=== PATIENT | male | born 1995 | race Caucasian/White ===

== ENCOUNTER 2020-11-13 11:58 | Emergency (ER) | payer SELFPAY ==
[2020-11-13 12:07] VITALS: BP 113/64; PULSE 58; RESP 16; TEMP 36.4; O2SAT 96
--- NOTE | 2020-11-13 12:18 | ECG_ITS ---
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 Measurements Intervals [place] Rate: 42 P: 43 NC: 157 QRS: 76 QRSD: 106 T: 47 QT: 445 QTc: 373 Interpretive Statements SINUS BRADYCARDIA WITH SINUS ARRHYTHMIA INCOMPLETE RIGHT BUNDLE BRANCH BLOCK [90+ ms QRS DURATION, TERMINAL R IN V1/V2, 40+ ms S IN I/aVL/V4/V5/V6] No previous ECG available for comparison Electronically Signed On 11-14-2020 10:08:30 CDT by Ryan Chacon M.D. [id number]
--- NOTE | 2020-11-13 12:18 | XR_ITS ---
WS: [id number] Portable AP upright chest, 11/13/2020 Clinical Data: chest pain Comparison: None. Findings: No nodules, masses or effusions are seen. The heart is normal. The pulmonary vascularity is not increased. No pneumonia or pneumothorax is seen. There is a healed left mid clavicular fracture. There are monitor leads on the chest wall. XR/XR chest 1V portable [id number] Impression: Negative chest.
[2020-11-13 12:40] LABS: Basophils % 0.5 %; Eosinophils # 0.1 10^3/uL (0.0-0.8); Eosinophils % 1.4 %; Hematocrit 40.8 % (42.0-52.0); Hemoglobin 13.9 g/dL (11.7-16.6); Lymphocytes # 3.4 10^3/uL (0.8-4.8); Lymphocytes % 54.1 %; Mean Corpuscular HGB Conc 34.1 g/dL (30.0-36.0); Mean Corpuscular Hemoglobin 28.4 pg (28.0-34.0); Mean Corpuscular Volume 83.3 fL (80-94); Mean Platelet Volume 10.5 fL (7.4-10.4); Monocytes # 0.5 10^3/uL (0.2-0.9); Monocytes % 7.7 %; Neutrophils # 2.25 10^3/uL (1.8-7.7); Nucleated Red Blood Cells % 0 %; Platelet Count 250 10^3/cmm (130-400); Red Cell Distribution Width 12.6 % (12.1-15.1); White Blood Count 6.3 10^3/uL (4.0-10.0)
[2020-11-13 12:56] LABS: Alanine Aminotransferase 24 U/L (0-41); Albumin Level 4.5 g/dL (3.5-5.2); Alkaline Phosphatase 104 IU/L (40-130); Anion Gap 14.2 (5-19); Aspartate Amino Transferase 29 U/L (0-40); Blood Urea Nitrogen 15 mg/dL (6-20); Carbon Dioxide 26 mmol/L (22-29); Chloride 102 mmol/L (98-107); Globulin 2.9 g/dL (1.3-4.6); Glomerular Filtration Rate 119.8 mL/min (90-130); Glucose 78 mg/dL (65-115); Osmolality Calculated 286 mOsm/kg (285-295); Potassium 4.2 mmol/L (3.5-5.1); Sodium 138 mmol/L (136-145); Total Bilirubin 0.8 mg/dL (0.15-1.2); Total Protein 7.4 g/dL (6.6-8.7)
[2020-11-13 12:57] LABS: Troponin(5th) Baseline 7 ng/L (0-15)
--- NOTE | 2020-11-13 12:57 | W.ED.CHESTPA ---
HPI - Chest Pain General: Chief Complaint: Chest Pain Stated Complaint: CHEST PAIN/ BRADYCARDIA Time Seen by Provider: 11/13/20 12:13 History of Present Illness: HPI narrative: Patient presents with right chest wall pain. Patient was worked on some physical activity when he developed the pain. Gets worse with deep breath. He does admit to vaping. He reports his dad has a problem with bradycardia and developing chest pain when he has bradycardia. Patient admits that he has had some issues with bradycardia in the past. He denies any nausea, vomiting, fever, chills, cough. The pain is reproducible with palpation. He is not having any pain at this time Associated symptoms: Deny abdominal pain, dyspnea, fever(s), nausea, palpitations or vomiting Review of Systems Const: Denies: fever(s) or chills Eyes: Denies: change in vision ENMT: Denies: throat pain Card: Reports: chest pain and other (Please see HPI); Denies: palpitations Resp: Denies: dyspnea or productive cough GI: Denies: abdominal pain, nausea or vomiting : Denies: flank pain or difficulty urinating Musc: Denies: neck pain or back pain Skin/Breast: Denies: rash Neuro: Denies: headache(s) Physical Exam Const: COMMON NORMALS: no acute distress, average body habitus and patient oriented x3 HENMT: COMMON NORMALS: normocephalic and atraumatic HEAD & SCALP: normocephalic and atraumatic Neck/C-Spine: COMMON NORMALS: full ROM and supple Chest: CHEST: Yes tenderness Resp: COMMON NORMALS: normal respiratory effort and No retractions Cardio: COMMON NORMALS: regular rate and regular rhythm RATE: regular rate RHYTHM: regular rhythm GI: COMMON NORMALS: Soft to palpation and non-tender PALPATION: Yes Soft to palpation Extremity: COMMON NORMALS: normal to inspection and full ROM Neuro: COMMON NORMALS: patient oriented x3 and CN's II-XII intact bilaterally Psych: COMMON NORMALS: mental status grossly normal and speech normal ATTITUDE: Yes calm SPEECH: Yes normal speech Skin: COMMON NORMALS: no rashes or lesions noted GENERAL SKIN EXAM: no rashes or lesions noted Course Vital Signs: Vital signs: Vital Signs Temperature 97.5 F L 11/13/20 12:07 Pulse Rate 58 L 11/13/20 12:07 Respiratory Rate 16 11/13/20 12:07 Blood Pressure 113/64 11/13/20 12:07 Pulse Oximetry 96 11/13/20 12:07 MDM - Chest Pain MDM Narrative: Medical decision making narrative: Patient with negative evaluation. Patient's physical exam is consistent with chest wall strain versus pleurisy. Discussed with patient does not seem cardiac in nature. Patient stable, discharged home. He should follow-up with his primary care provider for further outpatient evaluation Lab Data: Attestation: I reviewed the patient's lab results. Labs: Lab Results 11/13/20 11/13/20 11/13/20 Range/Units 11:40 11:40 11:40 WBC 6.3 (4.0-10.0) 10^3/ uL RBC 4.90 (4.1-5.3) 10^6/u L Hgb 13.9 (11.7-16.6) g/dL Hct 40.8 L (42.0-52.0) % MCV 83.3 (80-94) fL MCH 28.4 (28.0-34.0) pg MCHC 34.1 (30.0-36.0) g/dL RDW 12.6 (12.1-15.1) % Plt Count 250 (130-400) 10^3/c mm MPV 10.5 H (7.4-10.4) fL Neut % (Auto) 36.0 % Lymph % (Auto) 54.1 % [place] % (Auto) 7.7 % Eos % (Auto) 1.4 % Baso % (Auto) 0.5 % Neut # (Auto) 2.25 (1.8-7.7) 10^3/u L Lymph # (Auto) 3.4 (0.8-4.8) 10^3/u L [place] # (Auto) 0.5 (0.2-0.9) 10^3/u L Eos # (Auto) 0.1 (0.0-0.8) 10^3/u L Baso # (Auto) 0.0 (0.0-0.1) 10^3/u L Nucleated RBC % (a uto) 0 % Nucleated RBCs # 0.0 /100WBC Sodium 138 (136-145) mmol/L Potassium 4.2 (3.5-5.1) mmol/L Chloride 102 (98-107) mmol/L Carbon Dioxide 26 (22-29) mmol/L Anion Gap 14.2 (5-19) BUN 15 (6-20) mg/dL Creatinine 0.8 (0.7-1.2) mg/dL GFR Calculation 119.8 (90-130) mL/min Glucose 78 (65-115) mg/dL Calculated Osmolal ity 286 (285-295) mOsm/k g Calcium 9.0 (8.5-10.5) mg/dL Total Bilirubin 0.8 (0.15-1.2) mg/dL AST 29 (0-40) U/L ALT 24 (0-41) U/L Alkaline Phosphata se 104 (40-130) IU/L Troponin T Baselin e 7 (0-15) ng/L Total Protein 7.4 (6.6-8.7) g/dL Albumin 4.5 (3.5-5.2) g/dL Globulin 2.9 (1.3-4.6) g/dL Imaging Data^: CXR: Attestation: I personally reviewed and interpreted this imaging study as follows: My impression: no acute process Radiologist's impression: neg chest EKG Data^: EKG 1: EKG interpretation date: 11/13/20 EKG interpretation time: 12:39 Interpretation: hr 42, incomplete RBBB, Pr 157, no st changes Discharge Plan Discharge Patient Disposition: Home Clinical Impression: Anterior chest wall pain Condition: Stable Prescriptions: No Action No Known Home Medications RF: 0 Discharge Orders: Discharge ED (Routine); Ordered 11/13/20 Ordered By: Rodney Warren Discharge Diet: Usual diet Discharge Activity: Resume usual activity Patient Instructions: Opioid Safety, Chest Pain - Chest Wall Activity Restrictions/Additional Instructions: Tylenol ibuprofen as needed for pain Coding Level of Care Code ED Telephone Appointment Clerk for Chg Fwd Exam Comprehensive
[2020-11-13 13:51] VITALS: BP 113/64; PULSE 58; RESP 17; O2SAT 98
== END 2020-11-13 14:09 | disposition home or self-care (01) ==
PROVIDERS: Emergency Provider Student in an Organized Health Care Education/Training Program
DX: R07.89 Other chest pain (principal)
CPT/HCPCS: 71045; 80053; 84484; 85025; 93005; 99283

== ENCOUNTER 2021-08-12 14:25 | Emergency (ER) | payer SELFPAY ==
[2021-08-12 15:11] VITALS: BP 129/82; PULSE 68; RESP 14; TEMP 36.8; O2SAT 98; BMI 23.7
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
[2021-08-12] MEDS: neomycin-poly-bacitracin oint 28 gm 1 APPLIC TOPICAL (16:41)
[2021-08-12 16:54] VITALS: BP 125/87; PULSE 62; RESP 14; TEMP 36.8; O2SAT 98
== END 2021-08-12 16:51 | disposition home or self-care (01) ==
PROVIDERS: Emergency Provider Physician Assistant
DX: S60.512A Abrasion of left hand, initial encounter (principal); S60.511A Abrasion of right hand, initial encounter; S80.212A Abrasion, left knee, initial encounter; V00.131A Fall from skateboard, initial encounter
CPT/HCPCS: 99282; 99291; 99292

== ENCOUNTER 2021-11-16 22:58 | Emergency (ER) | payer SELFPAY ==
[2021-11-16 23:20] VITALS: BP 126/85; PULSE 50; RESP 20; TEMP 36.8; O2SAT 98; BMI 31.1
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
[2021-11-17] MEDS: ketorolac 60 mg/2 mL INJ IM (01:16)
[2021-11-17 02:18] VITALS: BP 113/51; PULSE 55; RESP 16; O2SAT 98
== END 2021-11-17 02:20 | disposition home or self-care (01) ==
PROVIDERS: Emergency Provider Physician Assistant
DX: S06.9X0A Unspecified intracranial injury without loss of consciousness, initial encounter (principal); S00.03XA Contusion of scalp, initial encounter; W16.122A Fall into natural body of water striking bottom causing other injury, initial encounter; Y92.828 Other wilderness area as the place of occurrence of the external cause; R51.9 Headache, unspecified; R41.0 Disorientation, unspecified
CPT/HCPCS: 70450; 72125; 96372; 99283; J1885

== ENCOUNTER 2023-06-17 00:17 | Emergency (ER) | payer SELFPAY ==
[2023-06-17 00:20] VITALS: BP 122/70; PULSE 73; RESP 20; TEMP 36.7; O2SAT 96; BMI 31.1
[2023-06-17 00:36] VITALS: BP 122/70; PULSE 67; RESP 20; O2SAT 96
--- NOTE | 2023-06-17 00:37 | XRR_ITS ---
PROCEDURE INFORMATION: Exam: XR Chest Exam date and time: 06/17/2023 12:43 AM Age: 27 years old Clinical indication: Patient HX: Cough, congestion TECHNIQUE: Imaging protocol: Radiologic exam of the chest. Views: 1 view. COMPARISON: CR XR chest 1V portable [id number] 11/13/2020 12:27 PM FINDINGS: Lungs: No consolidation. Pleural spaces: No pleural effusion. No pneumothorax. Heart/Mediastinum: No cardiomegaly. Bones/joints: Unremarkable. Intraperitoneal space: There is no free intraperitoneal air. XR/XR chest 1V portable [id number] IMPRESSION: No acute cardiopulmonary disease.
[2023-06-17] MEDS: ondansetron 4 MG Tablet PO (00:43)
--- NOTE | 2023-06-17 01:05 | ED_ITS ---
HPI - General Adult 2 General: Chief complaint: General Medical Stated complaint: thoat hurts, trowing up, possible fever Time Seen by Provider: 06/17/23 00:20 History of Present Illness: Patient presents to the ER with complaints of headache, productive cough nausea vomiting all started tonight about 830. Patient is unsure of COVID exposure. 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 Started coughing and then got nauseated just not feeling well. Patient has no overt pain no radiation just overall achiness. Review of Systems 2 General: Reports: 10 or more systems reviewed and unremarkable except in HPI and below PFSH ED 2 PFSH: Medical History No pertinent family history Surgical History No pertinent past surgical history Physical Exam 2 Const: COMMON NORMALS: no acute distress, average body habitus, patient oriented x3, no limitations, healthy appearing, alert and well nourished HENMT: COMMON NORMALS: normocephalic, atraumatic, hearing grossly normal bilaterally, external ears normal, Normal external nose present, moist oral mucous membranes and oropharynx normal HEAD & SCALP: normocephalic and atraumatic NOSE: Normal external nose present EXTERNAL EAR: Yes external ears normal Neck/C-Spine: COMMON NORMALS: full ROM, no lymphadenopathy, supple, no meningeal signs, no JVD and Thyroid normal THYROID: Thyroid normal Chest: COMMONS NORMALS: normal inspection of the chest and normal palpation of entire chest wall Resp: COMMON NORMALS: normal respiratory effort, No retractions, No use of accessory muscles and clear to auscultation bilaterally AUSCULTATION: clear to auscultation bilaterally Cardio: COMMON NORMALS: no JVD, regular rate, regular rhythm, S1 normal heart sound present, S2 normal heart sound present, No gallops present (Cardio), No clicks present (Cardio), No murmurs present (Cardio) and No rub (Cardio) R ATE: regular rate RHYTHM: regular rhythm HEART SOUNDS: S1 normal heart sound present and S2 normal heart sound present GI: COMMON NORMALS: Normal to inspection, nondistended, normoactive bowel sounds present, Soft to palpation, non-tender, No hepatosplenomegaly present and no masses PALPATION: Yes Soft to palpation and Yes No hepatosplenomegaly present Neuro: COMMON NORMALS: patient oriented x3 SENSORIUM/ORIENTATION: Yes alert MENINGEAL SIGNS: Yes no meningeal signs Course 2 Vital Signs: Vital signs: Vital Signs Temperature 98.1 F 06/17/23 00:20 Pulse Rate 67 06/17/23 00:36 Respiratory Rate 20 H 06/17/23 00:36 Blood Pressure 122/70 06/17/23 00:36 Pulse Oximetry 96 06/17/23 00:36 Oxygen Delivery Me thod Room Air 06/17/23 00:36 MDM - General Adult Medical Decision Making Patient had lab work done that included CBC CMP chest x-ray. As well as COVID testing. All of which were essentially negative. Patient's white count was 12.15 AST and ALT very mildly elevated at 47 and 74. Patient was dry heaving and he was given 10 mg of Reglan and his IV which did seem to help with a minute post. Patient be diagnosed with viral illness, cough, nausea vomiting and sent home with prescription for Reglan. Patient is to follow-up with his PCP in approximately 7 to 10 days or sooner as needed. Differential Diagnosis Headache, upper respiratory infection, nausea vomiting, Medical Records I reviewed the patient's medical records. Lab Data I reviewed the patient's lab results. 06/17/23 01:05 06/17/23 01:05 Radiology Impressions Chest X-Ray 06/17/23 00:37 IMPRESSION: No acute cardiopulmonary disease. Laboratory Results WBC 12.15 10^3/uL (3.29-11.43) H 06/17/23 01:05 RBC 4.99 10^6/uL (3.85-5.65) 06/17/23 01:05 Hgb 14.50 g/dL (11.27-16.99) 06/17/23 01:05 Hct 40.4 % (37-53) 06/17/23 01:05 MCV 81.0 fl (82-101) L 06/17/23 01:05 MCH 29.1 pg (27-33) 06/17/23 01:05 MCHC 35.9 g/dL (30-55) 06/17/23 01:05 RDW 11.9 % (12.1-15.1) L 06/17/23 01:05 Plt Count 292 10^3/cmm (157-399) 06/17/23 01:05 MPV 9.9 fL (7.4-10.4) 06/17/23 01:05 Neut % (Auto) 61.6 % 06/17/23 01:05 Lymph % (Auto) 29.5 % 06/17/23 01:05 [place] % (Auto) 7.2 % 06/17/23 01:05 Eos % (Auto) 1.1 % 06/17/23 01:05 Baso % (Auto) 0.4 % 06/17/23 01:05 Neut # (Auto) 7.49 10^3/uL (1.8-7.7) 06/17/23 01:05 Lymph # (Auto) 3.6 10^3/uL (0.8-4.8) 06/17/23 01:05 [place] # (Auto) 0.9 10^3/uL (0.2-0.9) 06/17/23 01:05 Eos # (Auto) 0.1 10^3/uL (0.0-0.8) 06/17/23 01:05 Baso # (Auto) 0.1 10^3/uL (0.0-0.1) 06/17/23 01:05 Nucleated RBC % (auto) 0 % 06/17/23 01:05 Nucleated RBCs # 0.0 /100WBC 06/17/23 01:05 Sodium 140 mmol/L (136-145) 06/17/23 01:05 Potassium 3.6 mmol/L (3.5-5.1) 06/17/23 01:05 Chloride 104 mmol/L (98-107) 06/17/23 01:05 Carbon Dioxide 25 mmol/L (22-29) 06/17/23 01:05 Anion Gap 14.6 (5-19) 06/17/23 01:05 BUN 12 mg/dL (6-20) 06/17/23 01:05 Creatinine 0.8 mg/dL (0.7-1.2) 06/17/23 01:05 GFR Calculation 117.8 mL/min (90-130) 06/17/23 01:05 Glucose 96 mg/dL (65-115) 06/17/23 01:05 Calculated Osmolality 290 mOsm/kg (285-295) 06/17/23 01:05 Calcium 9.6 mg/dL (8.5-10.5) 06/17/23 01:05 Total Bilirubin 0.6 mg/dL (0.15-1.2) 06/17/23 01:05 AST 47 U/L (0-40) H 06/17/23 01:05 ALT 74 U/L (0-41) H 06/17/23 01:05 Alkaline Phosphatase 112 U/L (40-130) 06/17/23 01:05 Total Protein 7.3 g/dL (6.6-8.7) 06/17/23 01:05 Albumin 4.4 g/dL (3.5-5.2) 06/17/23 01:05 Globulin 2.9 g/dL (1.3-4.6) 06/17/23 01:05 Influenza Type A Ag negative (Negative) 06/17/23 00:48 Influenza Type B Ag negative (Negative) 06/17/23 00:48 SARS-CoV-2 Ag (Rapid) negative (Negative) 06/17/23 00:48 All radiology interpretation(s) finalized by discharge Discharge Plan Discharge Patient Disposition: Home Clinical Impression: Viral respiratory illness, Nausea & vomiting Condition: Stable Discharge Orders: Discharge ED (Routine); Ordered 06/17/23 Ordered By: Jan Posadas Patient Instructions: Upper Respiratory Infection (ED), Acute Nausea and Vomiting (ED) Activity Restrictions/Additional Instructions: All your test was essentially benign. Is felt you have a viral upper respiratory infection and nausea vomiting. Please take all your medicine as prescribed. Please follow-up with your primary care practitioner next 7 to 10 days or sooner as needed. Coding Level of Care Code ED Assistant Credit Manager for Padma Tyson
[2023-06-17 01:09] LABS: Basophils # 0.1 10^3/uL (0.0-0.1); Basophils % 0.4 %; Eosinophils # 0.1 10^3/uL (0.0-0.8); Eosinophils % 1.1 %; Hematocrit 40.4 % (37-53); Lymphocytes # 3.6 10^3/uL (0.8-4.8); Lymphocytes % 29.5 %; Mean Corpuscular HGB Conc 35.9 g/dL (30-55); Mean Corpuscular Hemoglobin 29.1 pg (27-33); Mean Platelet Volume 9.9 fL (7.4-10.4); Monocytes # 0.9 10^3/uL (0.2-0.9); Monocytes % 7.2 %; Neutrophils # 7.49 10^3/uL (1.8-7.7); Neutrophils % 61.6 %; Nucleated Red Blood Cells % 0 %; Platelet Count 292 10^3/cmm (157-399); Red Blood Count 4.99 10^6/uL (3.85-5.65); Red Cell Distribution Width 11.9 % (12.1-15.1); White Blood Count 12.15 10^3/uL (3.29-11.43)
[2023-06-17] MEDS: metoclopramide 5 mg/mL SDV 2 mL 10 MG IVP (01:12)
[2023-06-17 01:20] LABS: Influenza A by IFA negative (Negative); Influenza B by IFA negative (Negative); SARS Covid-2 Antigen negative (Negative)
[2023-06-17 01:30] LABS: Alanine Aminotransferase 74 U/L (0-41); Albumin Level 4.4 g/dL (3.5-5.2); Alkaline Phosphatase 112 U/L (40-130); Anion Gap 14.6 (5-19); Aspartate Amino Transferase 47 U/L (0-40); Blood Urea Nitrogen 12 mg/dL (6-20); Calcium 9.6 mg/dL (8.5-10.5); Carbon Dioxide 25 mmol/L (22-29); Chloride 104 mmol/L (98-107); Globulin 2.9 g/dL (1.3-4.6); Glomerular Filtration Rate 117.8 mL/min (90-130); Glucose 96 mg/dL (65-115); Osmolality Calculated 290 mOsm/kg (285-295); Potassium 3.6 mmol/L (3.5-5.1); Sodium 140 mmol/L (136-145); Total Bilirubin 0.6 mg/dL (0.15-1.2); Total Protein 7.3 g/dL (6.6-8.7)
[2023-06-17 02:54] VITALS: BP 118/53; PULSE 86; RESP 18; O2SAT 97
== END 2023-06-17 02:56 | disposition home or self-care (01) ==
PROVIDERS: Emergency Provider Emergency Medicine
DX: B34.9 Viral infection, unspecified (principal); R11.2 Nausea with vomiting, unspecified; Z11.52 Encounter for screening for COVID-19
CPT/HCPCS: 71045; 80053; 85025; 87426; 87804; 96374; 99284; J2765; Q0162

== ENCOUNTER 2024-01-27 19:41 | Emergency (ER) | payer MEDICARE, SELFPAY ==
[2024-01-27 19:45] VITALS: BP 136/93; PULSE 88; RESP 16; TEMP 36.6; O2SAT 96; BMI 27.1
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
[2024-01-27 21:00] VITALS: BP 117/67; PULSE 61; O2SAT 98
[2024-01-27] MEDS: acetaminophen 500 mg Tablet 1000 MG PO (21:39)
[2024-01-27 21:48] VITALS: BP 117/70; PULSE 76; O2SAT 96
== END 2024-01-27 21:35 | disposition home or self-care (01) ==
PROVIDERS: Emergency Provider Student in an Organized Health Care Education/Training Program
DX: S06.0X0A Concussion without loss of consciousness, initial encounter (principal); W19.XXXA Unspecified fall, initial encounter
CPT/HCPCS: 70450; 99284

== ENCOUNTER 2025-05-31 22:47 | Emergency (ER) | payer MEDICARE, MEDICAID, SELFPAY ==
--- OUTSIDE RECORDS SUMMARY | 2008-11-26 07:00 | XMS_ITS | Continuity of Care Document ---
Author Organization [facility] Address [address] [place], [place] [id number] Phone Care Team Providers Care Opinion Polls Survey Worker Name Role Phone Pipo Ortiz MD Unavailable Unavailable Advance Directives Directive Yes / No Effective Date File Name No Information Encounters Encounter Description Practice Location Reason(s) For Visit Diagnoses Date Provider Providers Copied on Encounter Pipo Ortiz M.D., P.A., [address] [place] [address], [id number], tel:[phone] Pipo Ortiz M[facility] P.A[facility] [place] No Information Diana Foss. [address] [place] [address], [id number], . tel:[phone] Referring Provider: Jung Moreno, [address] [place] [address], [facility]. tel:[phone] Family History Family Member Type Diagnosis Age At Onset No Information Payers Payer name Insurance type Covered constitution party ID Authoriza tion(s) Medicaid [id number] Social History Type Description Quantity Date Captured Comments Sex Male Smoking Status No Information Chief Complaint And Reason For Visit No Information Reason For Referral Reason For Referral No Information History Of Present Illness Encounter Date Complaint History Of Prese nt Illness No Information Functional Status Date Functional Assessmen t No Information Instructions Date Instruction Additional Infor mation No Information Assessments Type Assessment Date No Information Patient Care Teams Name Effective Dates (start - stop) Status Members No Information
[2025-05-31 22:57] VITALS: BP 122/74; PULSE 47; RESP 16; TEMP 36.9; O2SAT 98; BMI 31.4
--- OUTSIDE RECORDS SUMMARY | 2025-05-31 22:57 | XMS_ITS | Clinical Summary ---
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 Name Role Phone Unavailable Primary Care Provider Unavailabl e Allergies Active Allergy Reactions Criticality Noted Date Comments Aripiprazole Rash Low 07/24/2021 Methylphenidate Rash Low 07/24/2021 Medications No known medications Social History Tobacco Use Types Packs/Day Years Used Date Smoking Tobacco: Every Day Cigarettes Alcohol Use Standard Drinks/Week Comments Not Currently 0 (1 standard drink = 0.6 oz pur e alcohol) Sex and Gender Information Value Date Recorded Sex Assigned at Not on file 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 Gender Identity Not on file Sexual Orientation Not on file Last Filed Vital Signs Vital Sign Reading Time Taken Comments Blood Pressure 113/66 07/24/2021 9:45 PM DROSOPHERE OPERATOR Pulse 46 07/24/2021 9:45 PM DROSOPHERE OPERATOR Temperature 36.3 C (97.4 F) 07/24/2021 9:06 PM DROSOPHERE OPERATOR Respiratory Rate 16 07/24/2021 9:06 PM DROSOPHERE OPERATOR Oxygen Saturation 99% 07/24/2021 9:45 PM DROSOPHERE OPERATOR Inhaled Oxygen Concentration - - Weight 84.5 kg (186 lb 3.2 oz) 07/24/2021 9:06 P M DROSOPHERE OPERATOR Height 175.3 cm (5' 9 ) 07/24/2021 9:06 PM DROSOPHERE OPERATOR Body Mass Index 27.5 07/24/2021 9:06 PM DROSOPHERE OPERATOR Plan of Treatment Health Maintenance Due Date Last Done Comments DTAP/TDAP/TD VACCINES (1 - Tdap) 2016 HEPATITIS B VACCINES (1 of 3 - 19+ 3-dose series) 08/2016 HPV VACCINES (1 - 3-dose SCDM series) 2024 INFLUENZA VACCINE (#1) 2025
[2025-05-31 23:20] VITALS: BP 122/74; PULSE 56; RESP 16; O2SAT 100
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
[2025-06-01] MEDS: tetanus-dipt-pertussis 0.5 mL SDV IM (00:19)
[2025-06-01] MEDS: bacitracin ointment Pkt 1 EACH TOPICAL (00:19)
[2025-06-01 01:14] VITALS: BP 120/70; PULSE 68; RESP 20; O2SAT 97
== END 2025-06-01 01:16 | disposition home or self-care (01) ==
PROVIDERS: Emergency Provider Student in an Organized Health Care Education/Training Program
DX: S60.812A Abrasion of left wrist, initial encounter (principal); G44.319 Acute post-traumatic headache, not intractable; S20.20XA Contusion of thorax, unspecified, initial encounter; V18.0XXA Pedal cycle driver injured in noncollision transport accident in nontraffic accident, initial encounter
CPT/HCPCS: 70450; 71110; 73100; 90471; 90715; 96372; 99284; J1885; J9999